=== PATIENT | male | born 1975 ===

== ENCOUNTER 2017-12-17 12:30 | Inpatient (IN) | payer OTHER ==
[~2017-12-17] VITALS: Ht 165.1 cm; Wt 107.0 kg
[2017-12-17] MEDS ORDERED: METFORMIN HCL500 MG PO (15:59)
[2017-12-17] MEDS ORDERED: LOSARTAN-HCTZ1 EAC2 PO (16:00)
[2017-12-24] MEDS ORDERED: CLONAZEPAM1 MG PO (13:16)
[2017-12-24] MEDS ORDERED: PERCOCET 5-3251 EACH PO (13:16)
[2017-12-24] MEDS ORDERED: COLACE100 MG PO (13:16)
== END 2017-12-25 14:54 | disposition home or self-care (01) | DRG 472 ==
LOC: EDUNIT# 12:30 → O/R 12:30 → PED 12-24 05:00 → O/R 12-24 05:00 → EDBD 12-24 12:30 → PED 12-24 16:20
PROVIDERS: Orthopaedic Surgery Orthopaedic Surgery of the Spine
PROC: 0RG20A0 Fusion of 2 or more Cervical Vertebral Joints with Interbody Fusion Device, Anterior Approach, Anterior Column, Open Approach (ICD-10-PCS; 2017-12-24)
PROC: 0RT30ZZ Resection of Cervical Vertebral Disc, Open Approach (ICD-10-PCS; principal; 2017-12-24 09:45)
DX: M47.12 Other spondylosis with myelopathy, cervical region (principal); M50.022 Cervical disc disorder at C5-C6 level with myelopathy; I10 Essential (primary) hypertension; E11.9 Type 2 diabetes mellitus without complications; I95.89 Other hypotension; E66.01 Morbid (severe) obesity due to excess calories

== ENCOUNTER → 2017-12-17 | Outpatient (CLI) | payer OTHER ==
[~2017-12-17] MED LIST: LOSARTAN-HCTZ1 EAC2 PO; METFORMIN HCL500 MG PO
== END | disposition home or self-care (01) ==
LOC: RAD 12:09 → EDBD 12:09
DX: R07.1 Chest pain on breathing (principal)